=== PATIENT | female | born 1975 | race American Indian/Alaskan Native ===

== ENCOUNTER 2020-06-07 11:22 | Emergency (ER) | payer OTHER ==
--- NOTE | 2020-06-07 13:49 | RAD REPORT ---
EXAM DESCRIPTION: RAD - Sacrum And Coccyx - 06/07/2020 1:19 pm CLINICAL HISTORY: PAIN COMPARISON: None FINDINGS: AP pelvis and sacrum/ coccyx, multiple projections are submitted. No fracture or malalignment is observed. Sacroiliac joints are symmetric. Both hips are intact.
--- NOTE | 2020-06-07 13:52 | RAD REPORT ---
EXAM DESCRIPTION: RAD - C Spine Ap/Lat - 06/07/2020 1:18 pm CLINICAL HISTORY: PAIN COMPARISON: No comparisons FINDINGS: Cervical bodies are normal in height and alignment.No fracture or acute bony process seen. Moderate disc thinning with posterior osteophyte at C4-5 and C5-6. No prevertebral soft tissue thickening or other suspicious soft tissue finding. The odontoid is normal and the lateral masses are symmetric. IMPRESSION: Moderate midcervical degenerative spondylosis.
[2020-06-07] MEDS ORDERED: HYDROCODONE/APAP 7.5/325 MG TAB ONE (14:38)
--- NOTE | 2020-06-07 15:13 | ER ---
Nurse's Notes [facility] Name: Frank Sanchez Age: 45 yrs Sex: Female : 1975 Arrival Date: 06/07/2020 Time: 11:25 Bed Treatment Private MD: Diagnosis: Myalgia;Fall on same level from slipping, tripping and stumbling;Low back pain Presentation: 06/07 12:14 Chief complaint: Patient states: Fell this morning in shower. Pt c/o neck and L buttock ss pain. Did not hit her head. Coronavirus screen: Client denies travel out of the [place] in the last 14 days. Ebola Screen: Patient denies exposure to infectious person. Patient denies travel to an Ebola-affected area in the 21 days before illness onset. Initial Sepsis Screen: Does the patient meet any 2 criteria? No. Patient's initial sepsis screen is negative. Does the patient have a suspected source of infection? No. Patient's initial sepsis screen is negative. Risk Assessment: Do you want to hurt yourself or someone else? Patient reports no desire to harm self or others. Onset of symptoms was June 07, 2020. 12:14 Method Of Arrival: Wheelchair ss 12:14 Acuity: CORWIN 4 ss Historical: - Allergies: 12:16 Sulfa (Sulfonamide Antibiotics); ss - PMHx: 12:16 PCOS; ss - PSHx: 12:16 None; ss - Immunization history:: Adult Immunizations up to date. - Social history:: Smoking status: Patient denies any tobacco usage or history of. Screenin:14 Abuse screen: Denies threats or abuse. Denies injuries from another. Nutritional ss screening: No deficits noted. Tuberculosis screening: Never had TB. Fall Risk None identified. Assessment: 12:14 General: Appears uncomfortable, Behavior is calm, cooperative, Denies fever, feeling ss ill, fatigue, chills. Pain: Complains of pain in left hip and right posterior aspect of neck Pain currently is 9 out of 10 on a pain scale. Quality of pain is described as aching, tender, Pain began suddenly, Is continuous. Neuro: Level of Consciousness is awake, alert, obeys commands, Oriented to person, place, time, situation. Cardiovascular: Capillary refill < 3 seconds is brisk in bilateral fingers Patient's skin is warm and dry. Respiratory: Airway is patent Respiratory effort is even, unlabored, Respiratory pattern is regular, symmetrical. GI: Patient currently denies diarrhea, nausea, vomiting. : Denies burning with urination, urinary frequency, vaginal bleeding. EENT: Nares are clear Oral mucosa is moist. Throat is clear. Derm: Skin is intact, is healthy with good turgor, Skin is dry, Skin is pink, warm \T\ dry. normal. Musculoskeletal: Circulation, motion, and sensation intact. Range of motion: intact in all extremities, Swelling absent. 13:15 Reassessment: Patient appears in no apparent distress at this time. Patient and/or ss family updated on plan of care and expected duration. Pain level reassessed. Patient is alert, oriented x 3, equal unlabored respirations, skin warm/dry/pink. 14:51 Reassessment: Patient appears in no apparent distress at this time. awaiting chest XRAY ss results. Vital Signs: 12:16 BP 117 / 78; Pulse 74; Resp 14; Temp 98.8(TE); Pulse Ox 99% ; Weight 56.7 kg; Height 5 ss ft. 3 in. (160.02 cm); Pain 9/10; 12:16 Body Mass Index 22.14 (56.70 kg, 160.02 cm) ss ED Course: 11:25 Patient arrived in ED. ds1 12:14 Patient has correct armband on for positive identification. Bed in low position. ss 12:15 Triage completed. ss 12:16 Arm band placed on right wrist. ss 13:16 XRAY Pelvis In Process Unspecified. EDMS 13:16 Sacrum And Coccyx XRAY In Process Unspecified. EDMS 13:16 XRAY C Spine Ap/lat In Process Unspecified. EDMS 14:02 Madisyn Vora FNP-C is PHCP. kb 14:02 Caleb Snyder MD is Attending Physician. kb 14:18 Kanwal Trivedi RN is Primary Nurse. ss 15:11 Chest Single View XRAY In Process Unspecified. EDMS 15:45 No provider procedures requiring assistance completed. Patient did not have IV access ss during this emergency room visit. Administered Medications: 14:21 Drug: [place] (HYDROcodone-acetaminophen) (7.5 mg-325 mg) 1 tabs Route: PO; ss 15:46 Follow up: Response: No adverse reaction; Pain is decreased ss Outcome: 15:12 Discharge ordered by . chela 15:45 Discharged to home via wheelchair, with family. ss 15:45 Condition: good 15:45 Discharge instructions given to patient, family, Instructed on discharge instructions, follow up and referral plans. medication usage, Demonstrated understanding of instructions, follow-up care, Prescriptions given X 2. 15:45 Patient left the ED. ss Signatures: Dispatcher [employer] EDMD Madisyn Vora, TEAM LEADER-C TEAM LEADER-Jayda Hernandez ds1 Kanwal Trivedi, RN RN ss
--- NOTE | 2020-06-07 15:13 | EDPHYS ---
Physician Documentation [facility] Name: Frank Sanchez Age: 45 yrs Sex: Female : 1975 Arrival Date: 06/07/2020 Time: 11:25 Bed Treatment Private MD: ED Physician Caleb Snyder HPI: 06/07 14:31 This 45 yrs old Other Female presents to ER via Wheelchair with complaints of Fall kb Injury. 14:31 Details of fall: The patient fell from an upright position, while standing. Onset: The kb symptoms/episode began/occurred this morning. Associated injuries: The patient sustained neck injury, pain, pain with movement, upper back injury, pain, pain with movement, tenderness, left hip, painful injury. Severity of symptoms: At their worst the symptoms were moderate, in the emergency department the symptoms are unchanged. The patient has not experienced similar symptoms in the past. The patient has not recently seen a physician. Pt slipped and fell in shower. c/o left hip, low back and neck pain . Historical: - Allergies: 12:16 Sulfa (Sulfonamide Antibiotics); ss - PMHx: 12:16 PCOS; ss - PSHx: 12:16 None; ss - Immunization history:: Adult Immunizations up to date. - Social history:: Smoking status: Patient denies any tobacco usage or history of. ROS: 14:29 Constitutional: Negative for fever, chills, and weight loss, Cardiovascular: Negative kb for chest pain, palpitations, and edema, Respiratory: Negative for shortness of breath, cough, wheezing, and pleuritic chest pain, Skin: Negative for injury, rash, and discoloration, Neuro: Negative for headache, weakness, numbness, tingling, and seizure. 14:29 Neck: Positive for pain with movement, pain at rest, tenderness, of the right posterior aspect of neck. 14:29 Back: Positive for pain at rest, pain with movement, of the thoracic area. 14:29 MS/extremity: Positive for pain, of the left hip. Exam: 14:30 Constitutional: This is a well developed, well nourished patient who is awake, alert, kb and in no acute distress. Head/Face: Normocephalic, atraumatic. Cardiovascular: Regular rate and rhythm with a normal S1 and S2. No gallops, murmurs, or rubs. No pulse deficits. Respiratory: Respirations even and unlabored. No increased work of breathing, no retractions or nasal flaring. Skin: Warm, dry with normal turgor. Normal color. Neuro: Awake and alert, GCS 15, oriented to person, place, time, and situation. Moves all extremities. Normal gait. 14:30 Neck: External neck: tenderness, that is mild, of the right posterior aspect of neck, C-spine: appears grossly normal. 14:30 Back: pain, that is mild, of the thoracic area, ROM is normal, normal spinal alignment noted. 14:30 Musculoskeletal/extremity: Extremities: grossly normal except: noted in the left hip: pain, tenderness, ROM: intact in all extremities, Circulation is intact in all extremities. Sensation intact. Weight bearing: able to fully bear weight. Vital Signs: 12:16 BP 117 / 78; Pulse 74; Resp 14; Temp 98.8(TE); Pulse Ox 99% ; Weight 56.7 kg; Height 5 ss ft. 3 in. (160.02 cm); Pain 9/10; 12:16 Body Mass Index 22.14 (56.70 kg, 160.02 cm) ss MDM: 14:02 Patient medically screened. kb 14:29 Data reviewed: vital signs, nurses notes. Data interpreted: Pulse oximetry: on room air kb is 99 %. Interpretation: normal. Counseling: I had a detailed discussion with the patient and/or guardian regarding: the historical points, exam findings, and any diagnostic results supporting the discharge/admit diagnosis, radiology results, the need for outpatient follow up, a family practitioner, to return to the emergency department if symptoms worsen or persist or if there are any questions or concerns that arise at home. 06/07 12:25 Order name: XRAY Pelvis 06/07 12:25 Order name: Sacrum And Coccyx XRAY; Complete Time: 14: ss 06/07 12:25 Order name: XRAY C Spine Ap/lat; Complete Time: 14: 06/07 14:09 Order name: Chest Single View XRAY kb Administered Medications: 14:21 Drug: [place] (HYDROcodone-acetaminophen) (7.5 mg-325 mg) 1 tabs Route: PO; ss 15:46 Follow up: Response: No adverse reaction; Pain is decreased ss Disposition: 17:22 Co-signature as Attending Physician, Caleb Snyder MD. rn Disposition: 06/07/20 15:12 Discharged to Home. Impression: Myalgia, Fall on same level from slipping, tripping and stumbling, Low back pain. - Condition is Stable. - Discharge Instructions: Musculoskeletal Pain, Back Pain, Adult, [id number]. - Prescriptions for Diclofenac Sodium 75 mg Oral Tablet, Delayed Release (E.C.) - take 1 tablet by ORAL route 2 times per day As needed; 30 tablet. orphenadrine citrate 100 mg Oral Tablet Sustained Release - take 1 tablet by ORAL route 2 times per day As needed; 20 tablet. - Medication Reconciliation Form, Thank You Letter, Antibiotic Education, Prescription Opioid Use form. - Follow up: Emergency Department; When: As needed; Reason: Worsening of condition. Follow up: Private Physician; When: 2 - 3 days; Reason: Recheck today's complaints, Continuance of care, Re-evaluation by your physician. Signatures: Dispatcher [employer] EDWV Madisyn Vora, THERESA-C TREAD CUTTER-CkCaleb Alex MD MD rn Smirch, Shelby, RN RN ss Corrections: (The following items were deleted from the chart) 15:45 15:12 06/07/2020 15:12 Discharged to Home. Impression: Myalgia; Fall on same level from ss slipping, tripping and stumbling; Low back pain. Condition is Stable. Forms are Medication Reconciliation Form, Thank You Letter, Antibiotic Education, Prescription Opioid Use. Follow up: Emergency Department; When: As needed; Reason: Worsening of condition. Follow up: Private Physician; When: 2 - 3 days; Reason: Recheck today's complaints, Continuance of care, Re-evaluation by your physician. kb
[2020-06-07 15:50] VITALS: BP 117/78; TEMP 98.8; O2SAT 99
--- NOTE | 2020-06-07 15:50 | RAD REPORT ---
EXAM DESCRIPTION: RAD - Chest Single View - 06/07/2020 3:10 pm CLINICAL HISTORY: PAIN Chest pain. COMPARISON: No comparisons FINDINGS: Portable technique limits examination quality. The lungs are grossly clear. The heart is normal in size. No displaced fractures. IMPRESSION: No acute intrathoracic process suspected.
--- NOTE | 2020-06-07 16:04 | RAD REPORT ---
EXAM DESCRIPTION: RAD - Pelvis - 06/07/2020 1:18 pm CLINICAL HISTORY: PAIN COMPARISON: None FINDINGS: AP pelvis and sacrum/ coccyx, multiple projections are submitted. No fracture or malalignment is observed. Sacroiliac joints are symmetric. Both hips are intact.
== END 2020-06-07 15:45 | disposition home or self-care (01) ==
LOC: ER 11:22
DX: M79.10 Myalgia, unspecified site (principal); M25.552 Pain in left hip; W01.0XXA Fall on same level from slipping, tripping and stumbling without subsequent striking against object, initial encounter; Y93.E1 Activity, personal bathing and showering; Y92.9 Unspecified place or not applicable; Z88.2 Allergy status to sulfonamides
CPT/HCPCS: 71045; 72040; 72170; 72220; 99283